=== PATIENT | female | born 1965 | race Caucasian/White ===

== ENCOUNTER 2023-09-21 12:41 | Outpatient (CLI) | payer OTHER, SELFPAY ==
--- NOTE | 2023-09-21 13:00 | CRLHL7_ITS ---
For Patients: As a result of the Century Cures Act, medical imaging exams and procedure reports are released immediately into your electronic medical record. You may view this report before your referring provider. If you have questions, please contact your health care provider. Indication: Herniated lumbar intervertebral disc Technique: Multiplanar, multisequence, MRI of the lumbar spine, obtained without contrast. Comparison: CT abdomen pelvis report 02/12/2022 Findings: Mild dextroconvex curvature, with preserved lumbar lordosis. Grade 1 anterolisthesis at L3-4 and L4-5. No acute osseous abnormality. Degenerative Modic type 2 endplate changes at L5-S1. Conus medullaris terminates at L1-2. No suspicious findings identified in the paraspinous soft tissues. Incidental tiny bilateral presumed renal cysts. Unremarkable included SI joints. T12-L1: No significant neural foraminal or spinal canal stenosis. L1-L2: Mild facet arthropathy. No significant neural foraminal or spinal canal stenosis. L2-L3: Mild-moderate facet arthropathy. No significant neural foraminal or spinal canal stenosis. L3-L4: Anterolisthesis, disc and moving/bulge, central annular fissure, moderate facet arthropathy. Mild-moderate bilateral neural foraminal narrowing. Moderate spinal canal stenosis. L4-L5: Anterolisthesis, disc unroofing with diffuse right eccentric disc-osteophyte complex, central annular fissure, moderate facet arthropathy. Mild left, moderately severe right neural foraminal stenosis with potential for right L4 nerve root impingement. Mild-moderate spinal canal narrowing with potential impingement of the descending L5 nerve roots along both lateral recesses. L5-S1: Mild diffuse disc-osteophyte complex, mild facet arthropathy. Mild left, moderate right neural foraminal stenosis. No spinal canal stenosis. Impression: 1. Lumbar spondylosis, with dextroconvex curvature and degenerative grade 1 spondylolisthesis as detailed. 2. At L3-L4, mild-moderate bilateral neural foraminal narrowing, with moderate spinal canal stenosis. 3. At L4-L5, moderately severe right neural foraminal stenosis with potential right L4 nerve root impingement, and mild-moderate spinal canal narrowing with potential bilateral L5 nerve root impingement along the lateral recesses. 4. At L5-S1, moderate right neural foraminal stenosis. Dictated by Sravanthi Shafer MD @ 09/21/2023 2:06:02 PM (Electronically Signed)
== END 2023-09-21 12:42 | disposition home or self-care (01) ==
LOC: MRI 12:42
PROVIDERS: PCP Family Medicine; Visit Provider Family Medicine
DX: M51.26 Other intervertebral disc displacement, lumbar region (principal); M47.896 Other spondylosis, lumbar region; M54.41 Lumbago with sciatica, right side; M48.07 Spinal stenosis, lumbosacral region
CPT/HCPCS: 72148

== ENCOUNTER 2025-03-27 06:00 | Day surgery (SDC) | payer BC, SELFPAY ==
[2025-03-27 06:16] VITALS: BMI 37.0
[2025-03-27] MEDS: LACTATED RINGERS 1000 ML 1,000 ML 100 ML IV (06:23)
[2025-03-27] MEDS: SODIUM CHLORIDE 0.9 % (FLUSH) 10 ML SYRINGE IVF (06:23)
[2025-03-27 06:44] VITALS: BP 120/72; PULSE 60; RESP 16; TEMP 36.9; O2SAT 96
[2025-03-27] MEDS: BUPIVACAINE 0.25% 30 ML INJECTION (07:25)
--- NOTE | 2025-03-27 09:11 | P.ANES_ITS ---
Anesthesia Charges Start Date/Time Anesthesia Start Date: 03/27/25 Anesthesia Start Time: 07:15 Stop Date/Time Anesthesia Stop Date: 03/27/25 Anesthesia Stop Time: 09:25 Coding CPT Codes CPT Codes: ANESTH LOWER LEG BONE SURG - 22686 ([id number]) P2 - PATIENT W/MILD SYST DISEASE, QZ - MANUFACTURING TECHNOLOGY ANALYST SVC W/O INDUSTRIAL MACHINERY MECHANIC BY
--- NOTE | 2025-03-27 09:11 | W.ANESCHARGE ---
Anesthesia Charges Start Date/Time Anesthesia Start Date: 03/27/25 Anesthesia Start Time: 07:15 Stop Date/Time Anesthesia Stop Date: 03/27/25 Anesthesia Stop Time: 09:25 Coding CPT Codes CPT Codes: ANESTH LOWER LEG BONE SURG - 20255 ([id number]) P2 - PATIENT W/MILD SYST DISEASE, QZ - MOLDER FOAM RUBBER SVC W/O APPAREL MERCHANDISER BY
[2025-03-27 09:22] VITALS: BP 93/53; PULSE 69; RESP 16; TEMP 36.6; O2SAT 94
--- NOTE | 2025-03-27 09:29 | W.PODPROC_ITS ---
Date of Procedure: 03/27/25 Surgeon: Haresh Medina DPM Pre-op Diagnosis: 1. DJD IPJ right hallux 2. 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 Retained orthopedic hardware right foot Post-op Diagnosis: 1. DJD IPJ right hallux 2. Clawtoe 4th digit right 3. Retained orthopedic hardware right foot Type of Procedure: 1. IPJ right hallux arthrodesis 2. Hardware removal right foot 3. And flexor tenotomy 4th digit right Indications: Patient had ongoing pain to her arthritic right great toe joint. She understands painful claw-toe 4th digit. She like to proceed with surgical correction. I reviewed the procedure, recovery, expectations potential complications. These include but are not limited to: Poor wound healing, infection, nonunion, malunion, delayed union, potentially future surgery, hardware failure or irritation, nerve injury, deep venous thrombosis, pulmonary embolism possible . She understands risks written consent was obtained. Site marked. Procedure Description: Patient is brought the operating room placed supine position on operating table. IV sedation initiated local anesthetic injected into the right foot. She was prepped and draped in a sterile fashion. Standard time-out protocol was followed. Right foot was exsanguinated the tourniquet inflated. Linear incision was made over the dorsomedial 1st MPJ and extended just past the IPJ gently curving and extending laterally. Incision was carried down through skin subcutaneous tissues. Full-thickness flap was created keeping the EHL tendon intact. First MPJ plate was exposed and removed without incident. The IPJ was exposed and a sagittal saw was used to resect the cartilage and subchondral bone from the proximal phalangeal head and from the distal phalangeal base. Correction was obtained through resection of proximal phalangeal side. Optimal alignment was achieved. Wound was thoroughly irrigated normal sterile saline. Opposing joint fusion surfaces were fenestrated. Guide pin was placed distal tip of the great toe driven across the fusion site into the proximal phalanx. Position was confirmed with C-arm. Partially-threaded headless 4.0 mm cannulated screw was inserted using standard technique. Excellent compression noted across the fusion site. The next the dorsomedial aspect a 8 mm staple was inserted using standard technique to prevent rotational forces. C-arm confirmed excellent position of hardware and fusion site. Wound irrigated normal sterile saline. Deep fascia closed with 3-0 Vicryl. The subcutaneous tissues reapproximated 4-0 Monocryl and skin closed with 4-0 Prolene. Using a [address] [place] blade a small stab incision was made on the plantar PIPJ of the 4th toe and the flexor tendon completely released. Toe position improved immediately. Incision closed with 4-0 Prolene. Sterile dressings were applied. Tourniquet was released and normal capillary fill time returned all digits. She was transferred from OR to same-day surgery with vital signs stable vascular status intact to the right foot. She will be discharged per same-day surgery protocol. She is given both written and verbal postop instructions. She is weight-bearing as tolerated to the heel in a surgical shoe. She has crutches or walker at home for balance. She is given oxycodone for pain. She will follow up in clinic in 2 days. Anesthesia: MAC Hemostasis: ankle Estimated blood loss (mL): 2 Provider Operated C-arm: C-arm fluoroscopy operated by Haresh Medina DPM for hardware removal and IPJ fusion right great toe. 26 spot images taken. Fluoroscopy time was 00:00:21. Implants: Shadi Fixos 4.0 mm cannulated screw x1, Shadi 8 mm staple x1 Specimens: none sent Disposition: same day
[2025-03-27 09:30] VITALS: BP 93/55; PULSE 64; RESP 16; O2SAT 94
[2025-03-27 09:45] VITALS: BP 101/59; PULSE 64; RESP 16; O2SAT 94
[2025-03-27 10:00] VITALS: BP 94/55; PULSE 60; RESP 16; O2SAT 95
[2025-03-27 10:15] VITALS: BP 99/57; PULSE 57; RESP 16; O2SAT 96
== END 2025-03-27 10:50 | disposition home or self-care (01) ==
PROVIDERS: PCP Family Medicine; Visit Provider Podiatrist
PROC: (CPT 28740; principal; 2025-03-27 07:15)
DX: M19.071 Primary osteoarthritis, right ankle and foot (principal); M79.674 Pain in right toe(s); Z96.9 Presence of functional implant, unspecified; M20.5X1 Other deformities of toe(s) (acquired), right foot
CPT/HCPCS: 28755; 20680; 28010; 01480; 73620; 76000; C1713; J0665; J0690; J1100; J2405; J2704; J3490; J7120

== ENCOUNTER 2025-06-26 08:09 | Day surgery (SDC) | payer BC, SELFPAY ==
[2025-06-26] MEDS: LACTATED RINGERS 1000 ML 1,000 ML 100 ML IV (08:15)
[2025-06-26 08:35] VITALS: BP 131/68; PULSE 64; RESP 16; TEMP 36.6; O2SAT 97; BMI 37.7
[2025-06-26] MEDS: SODIUM CHLORIDE 0.9 % (FLUSH) 10 ML SYRINGE IVF (08:39)
[2025-06-26] MEDS: BUPIVACAINE 0.25% 30 ML INJECTION (10:15)
[2025-06-26 11:37] VITALS: BP 122/84; PULSE 69; RESP 16; TEMP 37.2; O2SAT 95
--- NOTE | 2025-06-26 11:41 | P.ANES_ITS ---
Anesthesia Charges Start Date/Time Anesthesia Start Date: 06/26/25 Anesthesia Start Time: 09:51 Stop Date/Time Anesthesia Stop Date: 06/26/25 Anesthesia Stop Time: 11:38 Coding CPT Codes CPT Codes: ANESTH LOWER LEG BONE SURG - 74389 ([id number]) P3 - PATIENT W/SEVERE SYS DISEASE, QK - ENTERPRISE SALES PERSON 2-4 CNCRNT ANES PROC, QX - CHOIR SINGER SVC W/ MD MED DIRECTION
--- NOTE | 2025-06-26 11:41 | W.ANESCHARGE ---
Anesthesia Charges Start Date/Time Anesthesia Start Date: 06/26/25 Anesthesia Start Time: 09:51 Stop Date/Time Anesthesia Stop Date: 06/26/25 Anesthesia Stop Time: 11:38 Coding CPT Codes CPT Codes: ANESTH LOWER LEG BONE SURG - 39203 ([id number]) P3 - PATIENT W/SEVERE SYS DISEASE, QK - CRANE CREW SUPERVISOR 2-4 CNCRNT ANES PROC, QX - EXERCISE EQUIPMENT REPAIR TECHNICIAN SVC W/ MD MED DIRECTION
--- NOTE | 2025-06-26 11:44 | P.ANES_ITS ---
Anesthesia Charges Start Date/Time Anesthesia Start Date: 06/26/25 Anesthesia Start Time: 09:51 Stop Date/Time Anesthesia Stop Date: 06/26/25 Anesthesia Stop Time: 11:38 Coding CPT Codes CPT Codes: ANESTH LOWER LEG BONE SURG - 31976 ([id number]) QK - VICE PRESIDENT LENDING 2-4 CNCRNT ANES PROC, QX - HURRICANE TRACKER SVC W/ MD MED DIRECTION, P3 - PATIENT W/SEVERE SYS DISEASE
--- NOTE | 2025-06-26 11:44 | W.ANESCHARGE ---
Anesthesia Charges Start Date/Time Anesthesia Start Date: 06/26/25 Anesthesia Start Time: 09:51 Stop Date/Time Anesthesia Stop Date: 06/26/25 Anesthesia Stop Time: 11:38 Coding CPT Codes CPT Codes: ANESTH LOWER LEG BONE SURG - 29519 ([id number]) QK - WEB SITE MANAGER 2-4 CNCRNT ANES PROC, QX - AUTO MECHANIC SVC W/ MD MED DIRECTION, P3 - PATIENT W/SEVERE SYS DISEASE
[2025-06-26 11:45] VITALS: BP 124/71; PULSE 65; RESP 16; O2SAT 95
[2025-06-26 12:00] VITALS: BP 118/74; PULSE 59; RESP 16; O2SAT 95
[2025-06-26 12:15] VITALS: BP 118/65; PULSE 58; RESP 16; O2SAT 98
[2025-06-26 12:30] VITALS: BP 121/69; PULSE 60; RESP 16; O2SAT 94
--- NOTE | 2025-06-26 15:52 | W.PM.PODPROC ---
Date of Procedure: 06/26/25 Surgeon: Haresh Medina DPM Pre-op Diagnosis: 1. Right great toe nonunion 2. broken hardware right great toe Post-op Diagnosis: 1. Right great toe nonunion 2. broken hardware right great toe Type of Procedure: 1. removal of hardware right great toe 2. arthroplasty right great toe Indications: patient has a nonunion of a right IPJ great toe fusion. There is broken hardware. She has extreme pain. She is in need of surgical intervention. I reviewed the surgical procedure, recovery, expectations and potential complications. These include but are not limited to: Poor wound healing, infection, continued pain, potential need for future surgery, deep venous thrombosis, complex regional pain syndrome, pulmonary embolism possible . She understands risks written consent was obtained. Site marked. All questions answered. Procedure Description: Patient is brought the operating room placed supine position on the table to time IV sedation was initiated. 30 mL 0.25% Marcaine plain injected into the right foot. She was prepped and draped in a sterile fashion. Standard time-out protocol followed. Linear incision was made over the dorsal medial aspect of the IPJ fusion site. Incision was carried down through skin subcutaneous tissues. Periosteal incision made and periosteum reflected away from the nonunion. The broken staple was identified and removed without incident. Small stab incision made to the distal tip of the toe. Blunt dissection carried down to the screw head. The broken 4.0 cannulated screw was removed without difficulty. Sagittal saw was then used to resect the head of the proximal phalanx back to the broken screw. Wound was thoroughly irrigated with sterile saline. C-arm confirmed excellent resection. A 3 mm Arthrex dermal graft was then placed in the arthroplasty space. It was layered x3 for total of 9 mm. Drill hole was made from dorsal plantar through the proximal phalanx. 2-0 FiberWire was passed through the drill hole and looped over the graft anchoring it to the proximal phalanx to prevent shifting. Wound is thoroughly irrigated with sterile saline. Periosteum and deep fascia was then closed over the graft with 3-0 Vicryl. Subcutaneous tissues reapproximated 4-0 Monocryl and skin closed with 4-0 Prolene. C-arm images confirmed excellent appearing arthroplasty. Toe remained in anatomic alignment. Sterile dressing was applied. Tourniquet was released normal capillary fill time returned to all digits. is transferred from OR to same-day surgery with vital signs stable vascular status intact to the right lower extremity. She will be discharged per same-day surgery protocol. She was given both written and verbal postop instructions. She is given oxycodone for pain. She is weight-bearing as tolerated to the heel. She will wear a surgical shoe. Follow up in clinic in 2 days. Anesthesia: MAC and local Hemostasis: ankle Estimated blood loss (mL): 2 Provider Operated C-arm: C-arm fluoroscopy was utilized for right great toe arthroplasty by Haresh Medina DPM. total of 30 spot images were obtained. Total flu mikel time was 00.00.26. Implants: 3 mm sheet of arthroflex dermal allograft Specimens: none sent Disposition: same day
== END 2025-06-26 12:50 | disposition home or self-care (01) ==
LOC: OR 08:10
PROVIDERS: PCP Family Medicine; Visit Provider Podiatrist
PROC: (CPT 20680; principal; 2025-06-26 09:30)
PROC: (CPT 28740; 2025-06-26 09:30)
DX: M96.0 Pseudarthrosis after fusion or arthrodesis (principal); T84.84XA Pain due to internal orthopedic prosthetic devices, implants and grafts, initial encounter; T84.213A Breakdown (mechanical) of internal fixation device of bones of foot and toes, initial encounter
CPT/HCPCS: 28124; 20680; 01480; 73620; 76000; J0665; J0690; J1100; J2250; J2405; J2704; J3010; J7120